=== PATIENT | female | born 1950 | race Caucasian/White ===

== ENCOUNTER → 2020-05-15 | Outpatient (CLI) | payer MEDICARE, OTHER, SELFPAY ==
--- NOTE | 2020-05-15 | IMM_PTH ---
PATIENT: RD LAINEZ LOC: [facility] U#:[id number] AGE/SX: 69/F ROOM: RE05/15/[address]: Dr. William Polanco MD : 1950 BED: DIS: 05/15/2020 SPEC #: [id number] RECD: 05/17/20 12:51 STATUS: MYLES REQ #: [id number] KAITY: 05/15/20 00:[address]: William Polanco DEPT: IMMUNOHISTOCHEMISTRY RECD BY: Sania Mohan Tissues: Gastric mucous membrane Procedures: MSH2 (add) MLH-1 (add) MSH6 (add) Anti-PMS2 (add) CK20 (add) MOLINA-2 (add) HER2 GEORGIE (add) KI-67 (add) P53 (add) CDX2 (add) CK7 (initial) PHYSICIAN & INSTITUTION [place] [id number] SPECIMEN INFORMATION: Tissue Source: GE junction Clinical Info: Abdominal pain, weight loss, nausea/vomiting Specimen Number: [id number] CPT code: 15846, 70571 x10 METHODOLOGY: Deparaffinized sections of prefer/formalin-fixed tissue or PAP/DQ stained slides are incubated with monoclonal/polyclonal antibodies/oligonucleotide probes. Localization is made via biotin free immunoperoxidase method. Appropriate controls are performed and reacted as expected. Results on target cell population are indicated in the following table: RESULTS: ANTIBODY / CLONE RESULT CK7 (OV-TL12/30) positive, focal CK20 (KS20.8) positive, focal CDX2 (EXU2969S) positive Ki-67 (30-9) positive, 86% P53 (DO-7) positive, 2% MOLINA-2 (SP21) positive MLH-1 (M1) positive MSH2 (25D12) positive MSH6 (44) positive PMS2 (IPY4975) positive Her-2neu (CB11) positive, 3+ These tests were developed and their performance characteristics determined by [facility]. They may not have been cleared or approved by the U.S. Food and Drug Administration. The FDA has determined that such clearance or approval is not necessary. The above immunohistochemical/dualISH markers are ordered and reviewed by the Pathologist. INTERPRETATION: Gastroesophageal junction, biopsy: Adenocarcinoma. Result of Microsatellite Instability Study: Negative (no loss of mismatch protein; no microsatellite instability detected). AM:jordan 05/18/20
--- NOTE | 2020-05-15 13:08 | EGD_PTH ---
PATIENT: [facility]INEZ [id number] AGE/SX: 69/F ROOM: RE05/15/[address]: Dr. William Polanco MD : 1950 BED: DIS: 05/15/2020 SPEC #: [id number] RECD: 05/15/20 15:02 STATUS: MYLES BEATRIZ #: [id number] KAITY: 05/15/20 13:[address]: William Polanco DEPT: SURGICAL PATHOLOGY RECD BY: Marcos Arreola ENTERED: 05/16/20 07:56 SP TYPE: EGD BIOPSY OT DR: MARCOS Tissues: Gastric mucous membrane Procedures: Surgery Specimen Level IV HEADER OPERATION: EGD PRE-OP DIAGNOSIS: Abdominal pain, weight loss, nausea and/or vomiting TISSUE SUBMITTED: GE junction MICROSCOPIC DIAGNOSIS Gastroesophageal junction, biopsy: Adenocarcinoma. See comment. AM:jordan 05/17/20 COMMENT Immunohistochemistry ([id number]) supports the above diagnosis. Mucin stain with matched control is focally positive in carcinomatous epithelium. Case has been reviewed in consultation with Dr. Pineda who concurs with the above diagnosis. IDC:SJ MICROSCOPIC DESCRIPTION Slides are reviewed. GROSS DESCRIPTION Received in fixative is one container labeled with the patient's name and designated GE junction. The specimen consists of multiple irregular fragments of light easley soft tissue that in aggregate measure 1 x 0.5 x 0.1 cm. The specimen is totally submitted in one cassette. / SURAJ:jordan 05/16/20 TC:0 CPT: 69167
== END | disposition home or self-care (01) ==
LOC: LABSPEC 15:36
PROVIDERS: Referring Provider Internal Medicine Gastroenterology; Visit Provider Internal Medicine Gastroenterology
DX: R10.9 Unspecified abdominal pain (principal)
CPT/HCPCS: 88305; 88341; 88342

== ENCOUNTER → 2020-06-08 08:04 | Outpatient (CLI) | payer MEDICARE, OTHER, SELFPAY ==
[2020-05-30 09:09] VITALS: BMI 15.6
--- NOTE | 2020-06-08 08:14 | CT_ITS ---
STUDY: CT CHEST WITH CONTRAST REASON FOR EXAM: Female, 69 years old. NEW ESOPHAGEAL CA DX, STENT PLACED 2 WKS AGO RADIATION DOSAGE (If Supplied By Facility): CTDIvol = ( 9.85 ) mGy, DLP = ( 341.41 ) mGycm TECHNIQUE: Transaxial imaging was performed following intravenous administration of IV ISOVUE 300 75ML. Multiplanar coronal and sagittal images were reformatted. Individualized dose optimization techniques were used for this CT. COMPARISON: None. FINDINGS: Hyperinflation. Diffuse emphysematous changes with decreased bronchovascular markings in both lungs. Bullous changes in both lungs worse in the upper lobes. There is no demonstrated pleural abnormality. Normal heart and pericardium. Normal mediastinum. Normal hilar regions. Normal enhanced pulmonary arteries. Normal aorta arch and descending thoracic aorta. There are mild degenerative changes of the thoracic spine. Soft tissue mass with circumferential wall thickening in the distal esophagus extending into the gastroesophageal junction. The mass measures 6 cm x 5 cm. An air-fluid level is seen within the stent. Diffuse fatty infiltration of the liver. CT/Chest WITH Contrast IMPRESSION: Soft tissue mass with circumferential thickening of the distal esophagus and gastroesophageal junction. A stent is seen within. Electronically Signed: Cleveland Haas, at 9:16 EDT , Service support ,
--- NOTE | 2020-06-08 08:14 | CT_ITS ---
STUDY: CT ABDOMEN WITH CONTRAST REASON FOR EXAM: Female, 69 years old. NEW ESOPHAGEAL CA DX, STENT PLACED 2 WKS AGO, HYSTERECTOMY, SINGLE OOPHERECTOMY RADIATION DOSAGE (If Supplied By Facility): CTDIvol = ( 9.85 ) mGy, DLP = ( 341.41 ) mGycm TECHNIQUE: Transaxial images were obtained post I.V. administration of IV [id number] 75ML, and without oral contrast. Sagittal and coronal images were reconstructed. Individualized dose optimization techniques were used for this CT. COMPARISON: None. FINDINGS: The lung bases are clear. The visualized portions of the heart are within normal limits. Normal liver. Normal gallbladder and extrahepatic biliary system. Normal spleen. Normal pancreas. Normal bilateral adrenal glands. Normal right kidney. Normal left kidney. There is diffuse circumferential wall thickening of the distal esophagus and gastroesophageal junction. A covered stent is seen at that site. An air-fluid level is seen within the stent. Normal small intestine. Normal colon. The appendix is visualized and appears normal. There is diffuse atherosclerotic calcification of the abdominal aorta, without a demonstrated aneurysm. Normal inferior vena cava. Normal retroperitoneum. Normal abdominal wall. Normal osseous structures. CT/Abdomen WITH IV Contrast IMPRESSION: Diffuse circumferential wall thickening and mass effect in the distal esophagus as well as gastroesophageal junction. A stent is seen at that site. There is evidence of an air-fluid level within the stent. Electronically Signed: Cleveland Haas, at 9:14 EDT , Service support ,
[2020-06-08 08:25] LABS: CREATININE FINGERSTICK < 0.6 mg/dL (0.55-1.02)
== END ==
PROVIDERS: Referring Provider Internal Medicine Medical Oncology; Visit Provider Internal Medicine Medical Oncology
DX: C15.5 Malignant neoplasm of lower third of esophagus (principal)
CPT/HCPCS: 71260; 74160; Q9967; A4216

== ENCOUNTER 2020-06-29 07:57 | Day surgery (SDC) | payer MEDICARE, OTHER, SELFPAY ==
[2020-06-21 13:58] VITALS: BMI 16.6
[2020-06-27 13:00] VITALS: BMI 16.5
[2020-06-29 08:17] VITALS: BP 127/53; PULSE 88; RESP 14; TEMP 37.5; O2SAT 98; BMI 16.5
[2020-06-29] MEDS: Lactated Ringers 1,000 ML 100 ML IV (08:49)
[2020-06-29 08:55] LABS: Bedside Glucose 100 mg/dL (70-110)
--- NOTE | 2020-06-29 08:55 | HP_ITS ---
Intake Vital Signs 06/21/20 BMI 16.6 06/21/20 Height 5 ft 2 in 06/21/20 Weight: 90 lb 2 oz 06/21/20 BMI 16.5 06/21/20 BP 129/57 H 06/21/20 Blood Pressure Location Rt brachial 06/21/20 Position Sitting 06/21/20 Respiration 18 06/21/20 Pulse 71 06/21/20 Pulse Source Monitor 06/21/20 Temp 98.0 F 06/21/20 Temp Source Temporal 06/21/20 Pulse Oximetry (%) 94 06/21/20 Oxygen Delivery Method room air Intake Visit Reasons: PORT PLACEMENT Chief Complaint: Port Placement [employer] Required: No Is patient in pain?: No Allergies atorvastatin Adverse Reaction (Verified 06/21/20 13:57) Rash Medications Levothyroxine Sodium [Synthroid] 88 mcg PO DAILY 05/25/20 [History Confirmed 06/21/20] Pantoprazole Sodium 40 mg PO DAILY 05/25/20 [History Confirmed 06/21/20] Acetaminophen/Codeine Liquid [Tylenol W/Cod Liq 300-30MG/12.5ML] 12.5 ml PO Q4H PRN PRN #56 udc 05/30/20 [Rx Confirmed 06/21/20] Hydrocodone/Acetaminophen [Hydrocodon-Acetaminophen 5-325] 1 ea PO PRN PRN 05/30/20 [History Confirmed 06/21/20] Megestrol Acetate [Megace Udc] 400 mg PO DAILY #300 ml 05/30/20 [Rx Confirmed 06/21/20] Nystatin 100,000 unit PO DAILY 05/30/20 [History Confirmed 06/21/20] Mirtazapine [Remeron] 15 mg PO QHS #30 tab 06/19/20 [Rx Confirmed 06/21/20] PFSH Medical History Esophageal cancer (Acute) Odynophagia (Acute) Diabetes mellitus (Acute) Hypothyroidism (Acute) Surgical History H/O: hysterectomy (Acute) Social History (Updated 06/21/20 @ 14:[address] Simón Mendez MD) Smoking Status: Former smoker HPI HPI HPI: RD FATOU, is a 69 F who presents to the office today for HPI HPI Surgical H&P: Yes HPI: RD LAIENZ, is a 69 F who presents to the office today for Evaluation for a right IJ PowerPort. Patient is actively getting treatment for esophageal cancer. She will be starting chemotherapy and she needs a port.She will be starting her chemotherapy in the upcoming week. ROS General General: Yes weight change and fatigue; no appetite, colon cancer, breast cancer or weakness HEENT HEENT: No difficulty swallowing, eye injury, eye surgery, swollen glands or hoarseness Endo Endocrine: Yes thyroid disease; no diabetes mellitus, thyroid cancer, Hair loss, heat intolerance or cold intolerance Skin Skin: No rash or changing moles Breast Breast: No left breast lump, right breast lump, nipple discharge, breast pain, abnormal mammogram, abnormal US or breast enlargement Musc Musculoskeletal: No back problems, arthritis, rheumatoid arthritis, gout or joint pain Cardio Cardiovascular: No murmur, pacemaker, heart disease, atrial fibrillation, high blood pressure, heart attack, heart stent, palpitations, shortness of breat with exertion or chest pain Psych Psychiatric: No depression, anxiety or hearing voices Resp Respiratory: No shortness of breath, No sleep apnea, No cough, No COPD, No asthma, No emphysema, No wheezing Gastro Gastrointestinal: Yes abdominal pain, No nausea or vomiting, No diarrhea, No constipation, No blood in stool, Yes acid reflux, No hemorrhoids, No ulcers, No gallbladder problem, No black,tarry stools Erich Hematologic: No blood thinners, No blood disorders, No bleeding, No anemia, No blood clots Neuro Neurologic: No system reviewed and no additional complaints, except as docu, No as per HPI, No abnormal walking, No abnormal hearing, No abnormal movements, No abnormal speech, No behavioral changes, No burning sensations, No confusion, No seizure-like activity, No unsteadiness, No dizziness, No localized weakness, No frequent falls, No headache(s), No lack of coordination, No loss of vision, No memory loss, No numbness, No other visual disturbances, No radiating pain, No restless legs, No sensory deficit, No fainting, No tingling, No tremor(s), No weakness, No other Exam Const General: no acute distress, well developed, well hydrated Orientation: oriented to person, oriented to place, oriented to time [facility] Head: normocephalic, atraumatic Ears: external ears normal Mouth: moist mucous membranes Eyes Sclera: sclerae normal Pupils: normal by confrontation Neck Neck: no lymphadenopathy noted Neck mass: No Thyroid: thyroid normal, symmetrical Chest Chest palpation & inspection: normal inspection of the chest Breast Palpation: No nipple discharge Resp Effort & Inspection: normal respiratory effort Auscultation: clear to auscultation bilaterally Percussion: percussion normal Cardio Rate: regular rate Rhythm: regular rhythm Heart Sounds: no murmurs GI Palpation: soft, no hepatosplenomegaly, no masses, nontender Rectal Exam: other Other: Rectal exam deferred. Extrem General: normal to inspection, no clubbing, cyanosis or edema Assessment & Plan Problems 1. Vascular catheter fitting or adjustment Z45.2 Plan I plan to perform a Right internal jugular port a cath placement. The planned surgical procedure was discussed extensively with the patient. The risks, benefits, anticipated outcomes and possible complication were mentioned. My staff has also explained the procedure in understandable terms and the patient was given the option to take printed material concerning the planned procedure. The patient had the opportunity to ask questions concerning the planned procedure. The patient freely consents to the planned procedure. Coding Level of Care Code Off vis,new,level 3 Diagnoses Vascular catheter fitting or adjustment Z45.2 COVID (Procedure Consent) Procedure Criteria Procedure Criteria: Yes Elective The surgeon/proceduralist and patient have discussed in detail the risk of exposure to and/or potential harm posed by the COVID-19 virus with having a surgery/procedure at this time versus the risk of? delaying the surgery/procedure. It is not possible to know either the risk of delaying the surgery or procedure or chance of getting an infection with perfect accuracy, but a joint decision was made between the patient and the surgeon/proceduralist ?to proceed at this time with the scheduled surgery/procedure as indicated on the consent form. I have re-examined the patient. There are no clinical changes since date of exam.
[2020-06-29] MEDS: Cefazolin 2 GM in 0.9% Normal Saline 100 ML IV (09:00)
--- NOTE | 2020-06-29 09:38 | RAD_ITS ---
STUDY: X-RAY CHEST REASON FOR EXAM: Female, 69 years old. ASPIRATION TECHNIQUE: Single AP portable view of the chest. COMPARISON: None. FINDINGS: EKG electrodes are seen. A covered stent graft is seen in the distal esophagus extending into the region of the gastroesophageal junction. Hyperinflation. The lungs are clear. There is no demonstrated pleural abnormality. Normal size heart. Normal mediastinum and cyn. Normal visualized pulmonary arteries. There is atherosclerotic calcification of the aortic arch with tortuosity. Normal visualized thoracic spine. Normal visualized ribs, clavicles, and shoulders. There is no demonstrated abnormality of the visualized soft tissue structures of the upper abdomen. RAD/Chest 1 View (Portable) IMPRESSION: Hyperinflation. The lungs are clear. Electronically Signed: Cleveland Haas, at 11:30 EDT , Service support ,
[2020-06-29 09:45] VITALS: BP 110/56; BP 127/53; PULSE 81; RESP 16; O2SAT 100
[2020-06-29 09:50] VITALS: BP 127/53; BP 98/58; PULSE 83; RESP 16; O2SAT 95
[2020-06-29 09:55] VITALS: BP 102/46; BP 127/53; PULSE 82; RESP 16; TEMP 36.9; O2SAT 100
--- NOTE | 2020-06-29 10:25 | SUR.PHASEII ---
PATIENT DENIES ANY FURTHER NAUSEA. DENIES PAIN. AWAITING CXR RESULTS PER DR VALDEZ WHO STATES HIS OFFICE WILL CONTACT PATIENT WITH RESCHEDULE DATE.
[2020-06-29 11:55] VITALS: BP 127/53
== END 2020-06-29 11:56 | disposition home or self-care (01) ==
LOC: SDC 07:58 → AC 07:59
PROVIDERS: Anesthesiology; Referring Provider Surgery; Visit Provider Surgery
PROC: (CPT 36561; principal; 2020-06-29 09:10)
DX: Z45.2 Encounter for adjustment and management of vascular access device (principal); Z53.8 Procedure and treatment not carried out for other reasons; C15.9 Malignant neoplasm of esophagus, unspecified; R13.10 Dysphagia, unspecified; Z11.59 Encounter for screening for other viral diseases; E11.9 Type 2 diabetes mellitus without complications; E03.9 Hypothyroidism, unspecified; Z79.890 Hormone replacement therapy; Z79.899 Other long term (current) drug therapy; Z87.891 Personal history of nicotine dependence
CPT/HCPCS: 00532; 36561; 77001; 71045; 82962; 87635; 94799; J7120; J2405; U0003

== ENCOUNTER 2020-07-04 06:36 | Day surgery (SDC) | payer MEDICARE, OTHER, SELFPAY ==
--- NOTE | 2020-06-21 02:02 | HP_ITS ---
Intake Vital Signs 06/21/20 BMI 16.6 06/21/20 Height 5 ft 2 in 06/21/20 Weight: 90 lb 2 oz 06/21/20 BMI 16.5 06/21/20 BP 129/57 H 06/21/20 Blood Pressure Location Rt brachial 06/21/20 Position Sitting 06/21/20 Respiration 18 06/21/20 Pulse 71 06/21/20 Pulse Source Monitor 06/21/20 Temp 98.0 F 06/21/20 Temp Source Temporal 06/21/20 Pulse Oximetry (%) 94 06/21/20 Oxygen Delivery Method room air Intake Visit Reasons: PORT PLACEMENT Chief Complaint: Port Placement Home Health Outreach Coordinator Required: No Is patient in pain?: No Allergies atorvastatin Adverse Reaction (Verified 06/21/20 13:57) Rash Medications Levothyroxine Sodium [Synthroid] 88 mcg PO DAILY 05/25/20 [History Confirmed 06/21/20] Pantoprazole Sodium 40 mg PO DAILY 05/25/20 [History Confirmed 06/21/20] Acetaminophen/Codeine Liquid [Tylenol W/Cod Liq 300-30MG/12.5ML] 12.5 ml PO Q4H PRN PRN #56 udc 05/30/20 [Rx Confirmed 06/21/20] Hydrocodone/Acetaminophen [Hydrocodon-Acetaminophen 5-325] 1 ea PO PRN PRN 05/30/20 [History Confirmed 06/21/20] Megestrol Acetate [Megace Udc] 400 mg PO DAILY #300 ml 05/30/20 [Rx Confirmed 06/21/20] Nystatin 100,000 unit PO DAILY 05/30/20 [History Confirmed 06/21/20] Mirtazapine [Remeron] 15 mg PO QHS #30 tab 06/19/20 [Rx Confirmed 06/21/20] PFSH Medical History Esophageal cancer (Acute) Odynophagia (Acute) Diabetes mellitus (Acute) Hypothyroidism (Acute) Surgical History H/O: hysterectomy (Acute) Social History (Updated 06/21/20 @ 14:[address] Simón Mendez MD) Smoking Status: Former smoker HPI HPI HPI: RD FATOU, is a 69 F who presents to the office today for HPI HPI Surgical H&P: Yes HPI: RD LAINEZ, is a 69 F who presents to the office today for Evaluation for a right IJ PowerPort. Patient is actively getting treatment for esophageal cancer. She will be starting chemotherapy and she needs a port.She will be starting her chemotherapy in the upcoming week. ROS General General: Yes weight change and fatigue; no appetite, colon cancer, breast cancer or weakness HEENT HEENT: No difficulty swallowing, eye injury, eye surgery, swollen glands or hoarseness Endo Endocrine: Yes thyroid disease; no diabetes mellitus, thyroid cancer, Hair loss, heat intolerance or cold intolerance Skin Skin: No rash or changing moles Breast Breast: No left breast lump, right breast lump, nipple discharge, breast pain, abnormal mammogram, abnormal US or breast enlargement Musc Musculoskeletal: No back problems, arthritis, rheumatoid arthritis, gout or joint pain Cardio Cardiovascular: No murmur, pacemaker, heart disease, atrial fibrillation, high blood pressure, heart attack, heart stent, palpitations, shortness of breat with exertion or chest pain Psych Psychiatric: No depression, anxiety or hearing voices Resp Respiratory: No shortness of breath, No sleep apnea, No cough, No COPD, No asthma, No emphysema, No wheezing Gastro Gastrointestinal: Yes abdominal pain, No nausea or vomiting, No diarrhea, No constipation, No blood in stool, Yes acid reflux, No hemorrhoids, No ulcers, No gallbladder problem, No black,tarry stools Erich Hematologic: No blood thinners, No blood disorders, No bleeding, No anemia, No blood clots Neuro Neurologic: No system reviewed and no additional complaints, except as docu, No as per HPI, No abnormal walking, No abnormal hearing, No abnormal movements, No abnormal speech, No behavioral changes, No burning sensations, No confusion, No seizure-like activity, No unsteadiness, No dizziness, No localized weakness, No frequent falls, No headache(s), No lack of coordination, No loss of vision, No memory loss, No numbness, No other visual disturbances, No radiating pain, No restless legs, No sensory deficit, No fainting, No tingling, No tremor(s), No weakness, No other Exam Const General: no acute distress, well developed, well hydrated Orientation: oriented to person, oriented to place, oriented to time [facility] Head: normocephalic, atraumatic Ears: external ears normal Mouth: moist mucous membranes Eyes Sclera: sclerae normal Pupils: normal by confrontation Neck Neck: no lymphadenopathy noted Neck mass: No Thyroid: thyroid normal, symmetrical Chest Chest palpation & inspection: normal inspection of the chest Breast Palpation: No nipple discharge Resp Effort & Inspection: normal respiratory effort Auscultation: clear to auscultation bilaterally Percussion: percussion normal Cardio Rate: regular rate Rhythm: regular rhythm Heart Sounds: no murmurs GI Palpation: soft, no hepatosplenomegaly, no masses, nontender Rectal Exam: other Other: Rectal exam deferred. Extrem General: normal to inspection, no clubbing, cyanosis or edema Assessment & Plan Problems 1. Vascular catheter fitting or adjustment Z45.2 Plan I plan to perform a Right internal jugular port a cath placement. The planned surgical procedure was discussed extensively with the patient. The risks, benefits, anticipated outcomes and possible complication were mentioned. My staff has also explained the procedure in understandable terms and the patient was given the option to take printed material concerning the planned procedure. The patient had the opportunity to ask questions concerning the planned procedure. The patient freely consents to the planned procedure. Coding Level of Care Code Off vis,new,level 3 Diagnoses Vascular catheter fitting or adjustment Z45.2 COVID (Procedure Consent) Procedure Criteria Procedure Criteria: Yes Elective The surgeon/proceduralist and patient have discussed in detail the risk of exposure to and/or potential harm posed by the COVID-19 virus with having a surgery/procedure at this time versus the risk of? delaying the surgery/procedure. It is not possible to know either the risk of delaying the surgery or procedure or chance of getting an infection with perfect accuracy, but a joint decision was made between the patient and the surgeon/proceduralist ?to proceed at this time with the scheduled surgery/procedure as indicated on the consent form. 06/21/20 1402 <Electronically signed by Simón tabares MD> Date _ Simón Mendez MD
[2020-07-03 09:28] VITALS: BMI 17.7
[2020-07-04] VITALS (9 sets, daily range): BP systolic 107–151; BP diastolic 58–81; PULSE 72–82; RESP 16; TEMP 36.3–38.3; O2SAT 92–98; BMI 17.3
[2020-07-04] MEDS: Lactated Ringers 1,000 ML 100 ML IV ×2 (07:18→11:19)
[2020-07-04 07:35] LABS: Bedside Glucose 100 mg/dL (70-110)
--- NOTE | 2020-07-04 08:34 | PCM.HP.BLA ---
History and Physical Date of Admission: 07/04/20 [facility] Medical Records Department [address] [place] [address] History and Physical 06/21/20 0202 MR#: [id number] Acct: [id number] Name: RD LAINEZ Rep #: [id number] : 1950 69 From: Simón Mendez MD PCP: Dr. 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 Is patient in pain?: No Allergies atorvastatin Adverse Reaction (Verified 06/21/20 13:57) Rash Medications Levothyroxine Sodium [Synthroid] 88 mcg PO DAILY 05/25/20 [History Confirmed 06/21/20] Pantoprazole Sodium 40 mg PO DAILY 05/25/20 [History Confirmed 06/21/20] Acetaminophen/Codeine Liquid [Tylenol W/Cod Liq 300-30MG/12.5ML] 12.5 ml PO Q4H PRN PRN #56 udc 05/30/20 [Rx Confirmed 06/21/20] Hydrocodone/Acetaminophen [Hydrocodon-Acetaminophen 5-325] 1 ea PO PRN PRN 05/30/20 [History Confirmed 06/21/20] Megestrol Acetate [Megace Udc] 400 mg PO DAILY #300 ml 05/30/20 [Rx Confirmed 06/21/20] Nystatin 100,000 unit PO DAILY 05/30/20 [History Confirmed 06/21/20] Mirtazapine [Remeron] 15 mg PO QHS #30 tab 06/19/20 [Rx Confirmed 06/21/20] PFSH Medical History Esophageal cancer (Acute) Odynophagia (Acute) Diabetes mellitus (Acute) Hypothyroidism (Acute) Surgical History H/O: hysterectomy (Acute) Social History (Updated 06/21/20 @ 14:[address] Simón Mendez MD) Smoking Status: Former smoker HPI HPI HPI: RD LAINEZ, is a 69 F who presents to the office today for HPI HPI Surgical H&P: Yes HPI: RD LAINEZ, is a 69 F who presents to the office today for Evaluation for a right IJ PowerPort. Patient is actively getting treatment for esophageal cancer. She will be starting chemotherapy and she needs a port.She will be starting her chemotherapy in the upcoming week. ROS General General: Yes weight change and fatigue; no appetite, colon cancer, breast cancer or weakness HEENT HEENT: No difficulty swallowing, eye injury, eye surgery, swollen glands or hoarseness Endo Endocrine: Yes thyroid disease; no diabetes mellitus, thyroid cancer, Hair loss, heat intolerance or cold intolerance Skin Skin: No rash or changing moles Breast Breast: No left breast lump, right breast lump, nipple discharge, breast pain, abnormal mammogram, abnormal US or breast enlargement Musc Musculoskeletal: No back problems, arthritis, rheumatoid arthritis, gout or joint pain Cardio Cardiovascular: No murmur, pacemaker, heart disease, atrial fibrillation, high blood pressure, heart attack, heart stent, palpitations, shortness of breat with exertion or chest pain Psych Psychiatric: No depression, anxiety or hearing voices Resp Respiratory: No shortness of breath, No sleep apnea, No cough, No COPD, No asthma, No emphysema, No wheezing Gastro Gastrointestinal: Yes abdominal pain, No nausea or vomiting, No diarrhea, No constipation, No blood in stool, Yes acid reflux, No hemorrhoids, No ulcers, No gallbladder problem, No black,tarry stools Erich Hematologic: No blood thinners, No blood disorders, No bleeding, No anemia, No blood clots Neuro Neurologic: No system reviewed and no additional complaints, except as docu, No as per HPI, No abnormal walking, No abnormal hearing, No abnormal movements, No abnormal speech, No behavioral changes, No burning sensations, No confusion, No seizure-like activity, No unsteadiness, No dizziness, No localized weakness, No frequent falls, No headache(s), No lack of coordination, No loss of vision, No memory loss, No numbness, No other visual disturbances, No radiating pain, No restless legs, No sensory deficit, No fainting, No tingling, No tremor(s), No weakness, No other Exam Const General: no acute distress, well developed, well hydrated Orientation: oriented to person, oriented to place, oriented to time [facility] Head: normocephalic, atraumatic Ears: external ears normal Mouth: moist mucous membranes Eyes Sclera: sclerae normal Pupils: normal by confrontation Neck Neck: no lymphadenopathy noted Neck mass: No Thyroid: thyroid normal, symmetrical Chest Chest palpation & inspection: normal inspection of the chest Breast Palpation: No nipple discharge Resp Effort & Inspection: normal respiratory effort Auscultation: clear to auscultation bilaterally Percussion: percussion normal Cardio Rate: regular rate Rhythm: regular rhythm Heart Sounds: no murmurs GI Palpation: soft, no hepatosplenomegaly, no masses, nontender Rectal Exam: other Other: Rectal exam deferred. Extrem General: normal to inspection, no clubbing, cyanosis or edema Assessment & Plan Problems 1. Vascular catheter fitting or adjustment Z45.2 Plan I plan to perform a Right internal jugular port a cath placement. The planned surgical procedure was discussed extensively with the patient. The risks, benefits, anticipated outcomes and possible complication were mentioned. My staff has also explained the procedure in understandable terms and the patient was given the option to take printed material concerning the planned procedure. The patient had the opportunity to ask questions concerning the planned procedure. The patient freely consents to the planned procedure. Coding Level of Care Code Off vis,new,level 3 Diagnoses Vascular catheter fitting or adjustment Z45.2 COVID (Procedure Consent) Procedure Criteria Procedure Criteria: Yes Elective The surgeon/proceduralist and patient have discussed in detail the risk of exposure to and/or potential harm posed by the COVID-19 virus with having a surgery/procedure at this time versus the risk of? delaying the surgery/procedure. It is not possible to know either the risk of delaying the surgery or procedure or chance of getting an infection with perfect accuracy, but a joint decision was made between the patient and the surgeon/proceduralist ?to proceed at this time with the scheduled surgery/procedure as indicated on the consent form. 06/21/20 1402 <Electronically signed by Simón Mendez MD> Date Simón Mendez MD Date: Time: Simón Mendez MD CC: ~ Date Dictated: 06/21/20 0202 Date Transcribed: 07/03/20 1513 Finance Director: AYSE Salinas I have re-examined the patient. There are no clinical changes since date of exam.
[2020-07-04 08:43] LABS: Probe Check PASS; Specimen Processing Control PASS
[2020-07-04] MEDS: Cefazolin 2 GM in 0.9% Normal Saline 100 ML IV (09:13)
[2020-07-04] MEDS: BUPIVACAINE LIPOSOME/PF 20 ML VIAL OPERA.SITE (09:47)
--- NOTE | 2020-07-04 10:11 | RAD_ITS ---
STUDY: X-RAY CHEST REASON FOR EXAM: Female, 69 years old. POST PORT PLACEMENT TECHNIQUE: Single AP portable view of the chest. COMPARISON: Comparison is made with prior study dated 06/29/2020. FINDINGS: A right-sided karo catheter has been placed. The tip is at the junction of the superior vena cava and right atrium. An esophageal covered stent is seen and this is unchanged. Increased markings in the retrocardiac region of the left lower lobe this may represent scarring and/or atelectasis. There is no demonstrated pleural abnormality. Normal size heart. Normal mediastinum and cyn. Normal visualized pulmonary arteries. There is atherosclerotic calcification of the aortic arch with tortuosity. Normal visualized thoracic spine. Normal visualized ribs, clavicles, and shoulders. There is no demonstrated abnormality of the visualized soft tissue structures of the upper abdomen. RAD/Chest 1 View (Portable) IMPRESSION: The tip of the right-sided karo catheter is at the junction of the superior vena cava and right atrium. Electronically Signed: Cleveland Haas, at 11:27 EDT , Service support ,
--- NOTE | 2020-07-04 10:11 | DCINST_ITS ---
Discharge Diet: No Restrictions - Pain medication may cause nausea. You should typically eat light foods as you take your pain medication. Discharge Activity: May Shower - with the bandage in place 1-2 days after surgery. DO NOT SHOWER WHEN YOUR PORT IS ACCESSED. Additional Activity Instructions:: May not drive, work with heavy equipment, or sign legal documents for [address] if you are no longer taking narcotic pain medications. You may drive when you are no longer taking pain medications. Additional Dressing/Incision Instructions:: Leave the bandage on for 2-3 days. When you remove the bandage, leave the steri-strips intact until they fall off. Allergies/Adverse Reactions: Allergies atorvastatin Adverse Reaction (Verified 07/04/20 06:49) Rash Medications to take at Discharge Levothyroxine Sodium [Synthroid] 88 mcg PO DAILY 05/25/20 Pantoprazole Sodium 40 mg PO DAILY 05/25/20 Lidocaine/Prilocaine [Lidocaine-Prilocaine Cream] 1 applicatio TP DAILY PRN PRN 30 Days #1 tube 06/22/20 Ondansetron [Ondansetron Odt] 8 mg PO Q8H PRN PRN 10 Days #30 tab.rapdis 06/22/20 Megestrol Acetate [Megace Udc] 400 mg PO DAILY 07/03/20 Mirtazapine [Remeron] 15 mg PO QHS 07/03/20 Oxycodone HCl/Acetaminophen [Percocet 5/325] 1 - 2 tab PO Q4H PRN PRN 6 Days #30 tab 07/04/20 The following prescriptions were given: Oxycodone HCl/Acetaminophen [Percocet 5/325] 1 - 2 tab PO Q4H PRN PRN 6 Days #30 tab PRN Reason: Pain Transmission Status: Received by [facility]/pharmacy #[id number] Primary Care Physician: Keely Parker DO [Primary Care Provider] - Test Results: Test results from this visit will be discussed in further detail at your follow- up appointment, if applicable. Please Follow Up With: Simón Mendez MD - [phone] When: Please plan to follow up in 7 days in the office.
[2020-07-04 10:21] LABS: Bedside Glucose 93 mg/dL (70-110)
--- NOTE | 2020-07-06 13:05 | PCM.OPRPT ---
Problem List (1) Vascular catheter fitting or adjustment Status: Acute Report of Operation Date of Procedure: 07/04/20 Pre-Operative Diagnosis: Vascular fitting and adjustment Post-Operative Diagnosis: Same Surgery/Procedure Performed:: Placement of right IJ PowerPort Type of Anesthesia:: General Anesthesiologist: Moses Kern Estimated Blood Loss (mL): <25 cc Description of Procedure: Patient was brought into the operating room. Placed in the supine position. Under excellent general endotracheal ovation the right neck and chest area were ultrasound identifying the internal jugular vein. The right chest and neck area were then sterilely prepped and draped in the usual fashion. Patient was placed in the slightly headdown position. Local was injected into the neck setting is technique was used to gain access to the internal jugular vein guidewire was placed over the needle the needle was removed fluoroscopy was used to confirm proper placement of the wire. I injected local in the chest I made an incision I created a pocket with use of electrocautery for the port. Went back up into the neck skin parviz was made dilator and sheath were placed over the guidewire removing the dilator and guidewire. Single-lumen catheter was placed through the sheath the sheath was removed. Fluoroscopy was used to confirm proper length of the catheter. I tunneled from the pocket on the chest up over the collarbone into the neck and brought the catheter down I cut at the length placed the locking hub on the catheter the port onto the catheter and then securing the 2 with a locking hub. The port was then flushed with 5 cc of Hepflush it worked well. I sutured it into the pocket created with 2 sutures of 2-0 Prolene. Skin incisions were brought together with deep dermal stitches of 3-0 Vicryl. Dermabond was applied sterile dressings were applied patient tolerated the procedure well. Portable chest x-ray was obtained. - Admit VTE Documentation VTE Present on Admission: No VTE Mechan Device Prophylaxis: SCD's VTE Pharm Prophylaxis ordered?: No Reason prophylaxis not ordered:: Treatment Not Indicated - Procedures Cardiovascular CF Procedures [id number]: [id number] Insert tunneled cv cath - [id number] , [id number]
== END 2020-07-04 12:07 | disposition home or self-care (01) ==
LOC: SDC 06:37 → AC 06:38
PROVIDERS: Referring Provider Surgery; Visit Provider Surgery
PROC: (CPT 36561; principal; 2020-07-04 08:30)
DX: Z45.2 Encounter for adjustment and management of vascular access device (principal); C15.9 Malignant neoplasm of esophagus, unspecified; E03.9 Hypothyroidism, unspecified; E11.9 Type 2 diabetes mellitus without complications; F41.9 Anxiety disorder, unspecified; F32.9 Major depressive disorder, single episode, unspecified; Z79.899 Other long term (current) drug therapy; Z87.891 Personal history of nicotine dependence; G25.81 Restless legs syndrome
CPT/HCPCS: 00532; 36561; 71045; 77001; 82962; 87635; C9803; J7120; C1788; J2405; U0003

== ENCOUNTER → 2020-08-07 10:02 | Outpatient (CLI) | payer MEDICARE, OTHER, SELFPAY ==
[2020-08-07 09:02] VITALS: BMI 17.4
--- NOTE | 2020-08-07 10:03 | RAD_ITS ---
STUDY: X-RAY - ABDOMEN/PELVIS REASON FOR EXAM: Female, 69 years old. Esophageal CA, stent placed in esophagus, currently receiving chemo -- complains of abdomen pain, started around same time as cancer diagnosis TECHNIQUE: Single AP view of the abdomen / pelvis. COMPARISON: None. FINDINGS: An esophageal covered stent is seen and this is unchanged. There is an unremarkable bowel gas pattern. There is no demonstrated free abdominal air. The visualized liver, spleen and kidneys are grossly normal in size and morphology. Normal soft tissue structures. Normal visualized osseous structures. RAD/Abdomen Single View IMPRESSION: Normal x-ray examination of the abdomen and pelvis. Electronically Signed: Juan C Brady, at 14:09 EDT Tel , Service support ,
--- NOTE | 2020-08-07 10:03 | RAD_ITS ---
STUDY: X-RAY CHEST REASON FOR EXAM: Female, 69 years old. Esophageal CA, stent placed in esophagus, currently receiving chemo -- complains of abdomen pain, started around same time as cancer diagnosis TECHNIQUE: Frontal and lateral views of the chest. COMPARISON: 07/04/2020 FINDINGS: A right-sided karo catheter has been placed. The tip is at the junction of the superior vena cava and right atrium. An esophageal covered stent is seen and this is unchanged. Gas fibroadenomas are seen in both lungs largest measures 4 mm is in the left lung base. There is small left pleural effusion with compressive atelectasis in the left lung base. Normal size heart. Normal mediastinum and cyn. Normal visualized pulmonary arteries. Normal visualized aortic arch and descending thoracic aorta. Normal visualized thoracic spine. Normal visualized ribs, clavicles, and shoulders. There is no demonstrated abnormality of the visualized soft tissue structures of the upper abdomen. RAD/Chest PA and Lateral IMPRESSION: New small left pleural effusion. Electronically Signed: Juan C Brady, at 14:04 EDT Tel , Service support ,
== END ==
PROVIDERS: Referring Provider Internal Medicine Medical Oncology; Visit Provider Internal Medicine Medical Oncology
DX: Z51.11 Encounter for antineoplastic chemotherapy (principal); C15.5 Malignant neoplasm of lower third of esophagus; D50.9 Iron deficiency anemia, unspecified; R10.9 Unspecified abdominal pain
CPT/HCPCS: 36591; 71046; 74018; 80053; 82378; 83615; 83735; 85025; 96367; 96368; 96375; 96411; 96413; 96415; 96416; J0640; J1756; A4216; J2469; J3490; J9190; J9263

== ENCOUNTER 2020-08-25 08:32 | Emergency (ER) | payer MEDICARE, OTHER, SELFPAY ==
[2020-08-21 08:59] VITALS: BMI 17.4
[2020-08-25 08:33] VITALS: BP 143/81; PULSE 83; RESP 18; TEMP 36.7; O2SAT 96; BMI 17.2
--- NOTE | 2020-08-25 08:44 | EKG12_ITS ---
Test Reason : SOB Blood Pressure : / mmHG Vent. Rate : 077 BPM Atrial Rate : 077 BPM P-R Int : 168 ms QRS Dur : 076 ms QT Int : 396 ms P-R-T Axes : 000 005 060 degrees QTc Int : 448 ms Normal sinus rhythm vs Ectopic Atrial Rhythm Nonspecific ST abnormality Abnormal ECG Confirmed by GURPREET MONROY, YADIRA ([id number]), editor managing newspaper JEFFERY BOSCH ([id number]) on 08/28/2020 11:28:24 AM Referred By: KRISS Confirmed By:YADIRA VÁZQUEZ MD
--- NOTE | 2020-08-25 08:52 | NURSING ---
PT DID NOT HAVE AN PREVIOUS EKG IN OUR SYSTEM
--- NOTE | 2020-08-25 09:03 | ED.VIS.GEN ---
History of Present Illness Chief Complaint: Shortness of Breath Informant: Patient Narrative: 69-year-old female with past medical history of esophageal cancer currently on chemotherapy with her last treatment being 4 days ago presents with concern for shortness of breath. States it is worsened over the past 48 hours. States that she has had a slight cough. Denies any fever or chills. Denies any nausea, vomiting, chest pain, diaphoresis. Past Medical History - Allergies and Home Meds Allergies/Adverse Reactions: Allergies atorvastatin Adverse Reaction (Verified 08/25/20 08:35) Rash Primary Care Physician: Keely Parker DO [Primary Care Provider] - Prior records reviewed: Yes Past Medical History: - - esophageal cancer Lives: Spouse/ Significant Other Smoking Status: Former smoker Alcohol: None Drugs: None Review of Systems General: Denies: Chills, Fever, Sweats Eyes: Denies: Visual changes - bilaterally, Diplopia ENT: Denies: Rhinorrhea, Sore throat Cardiovascular: Denies: Chest pain, Palpitations Respiratory: Reports: Dyspnea, Cough. Denies: Dyspnea on exertion Gastrointestinal: Denies: Abdominal pain, Nausea, Vomiting, Diarrhea, Melena, Hematochezia Genitourinary: Denies: Dysuria, Hematuria, Frequency Musculoskeletal: Denies: Back pain, Extremity Pain Skin: Denies: Rash, Wounds Neurological: Denies: Headache, Weakness, Numbness Physical Exam Vital Signs/Narrative: Vital Signs Temp Pulse Resp BP Pulse Ox 08/25/20 08:33 98.1 F 83 18 143/81 H 96 Inital Vital Signs reviewed: Yes General: Well nourished, Well developed, No Acute Distress Head: Normocephalic, Atraumatic Eyes: Perrl, EOMI ENT: Moist mucous membranes, No rhinorrhea Neck: Supple, Nontender Cardiovascular: Regular rate, Regular rhythm, No murmurs Respiratory: No distress, CTA bilaterally, Chest nontender Abdomen: Soft, Nontender, Nondistended, Normal bowel sounds Back: Nontender, Normal Inspection Extremities: Nontender, No edema Skin: Normal color, No rash Neurological: Alert, Oriented x3, Cranial nerves II-XII grossly intact, Normal Strength, Normal Sensation Psychological: Normal affect, Normal Mood Diagnostic/Tx/Re-eval Chest X-Ray - ED: 1 View, Normal Clinical Impression(s) from Imaging Studies Chest X-Ray 08/25/20 09:32 IMPRESSION: Mild degree of increased pleural parenchymal changes at the left lung base. Electronically Signed: Cleveland Haas, at 9:48 EDT , Service support , Laboratory Data 08/25/20 08/25/20 09:10 09:10 WBC 7.8 RBC 3.37 L Hgb 9.9 L Hct 32.5 L MCV 96.4 MCH 29.4 MCHC 30.5 L RDW Std Deviation 80.4 H RDW Coeff of Ruben 22.5 H Plt Count 165 MPV 9.4 Immature Gran % (Auto) 0.900 Neut % (Auto) 72.5 H Lymph % (Auto) 23.2 Hardeman % (Auto) 2.6 Eos % (Auto) 0.5 Baso % (Auto) 0.3 Absolute Neuts (auto) 5.7 Absolute Lymphs (auto) 1.81 Nucleated RBC % 0 Differential Comment SCANNED Rouleaux 1+ Sodium 131 L Potassium 3.6 Chloride 98 Carbon Dioxide 26.0 Anion Gap 7 BUN 16 Creatinine 0.43 L Estim Creat Clear Calc 34.86 Est GFR (MDRD) Af Amer 186 Est GFR (MDRD) Non-Af 154 BUN/Creatinine Ratio 37.2 H Glucose 93 Calcium 8.4 L Troponin I < 0.015 - Rhythm Strip Rhythm Strip: Sinus Rhythm Rate: 77 Ectopy: None - EKG Initial EKG Interpretation: Sinus Rhythm - Sinus rhythm at 77 bpm. IL interval of 168 ms. QTC of 448 ms. No evidence of ST elevation or depression at this time. - Medical Decision Making Appears well nontoxic. No respiratory distress. Lungs clear. Chest x-ray negative. Lab work within normal limits. Patient has no tachycardia or hypoxemia. Patient monitored in the emergency department for approximately 2 and half hours without any decompensation. Patient states that she is feeling improved. Patient will be tested for coronavirus. Spoke with the patient's oncologist who is agreeable with discharge. Asked to follow-up with primary care as well as oncology. Discharged home in stable condition. ED Disposition - Plan for ED Patient: Disposition: Home or Assisted Living Instructions: ED Upper Resp Infec No Abx Tx Referrals: Keely Parker DO [Primary Care Provider] - 2 Days
[2020-08-25 09:30] LABS: Absolute Lymphocyte Count 1.81 X10^3/uL (0.83-4.51); Absolute Neutrophil Count 5.7 X10^3/uL (2.0-7.7); Basophil# 0.02 X10^3/uL; Basophil% 0.3 % (0-1); Eosinophil# 0.04 X10^3/uL; Eosinophils% 0.5 % (0-5); Hematocrit 32.5 % (37-47); Hemoglobin 9.9 g/dL (12.0-15.0); Lymphocyte # 1.81 X10^3/ul (4.0); Lymphocyte % 23.2 % (19-41); Mean Corp Hgb Conc 30.5 g/dL (32-36); Mean Corpuscular Hgb 29.4 pg (27.0-32.0); Mean Corpuscular Volume 96.4 fL (81-99); Mean Platelet Vol. 9.4 fl (6.2-12.0); Monocyte% 2.6 % (0-10); NRBC Flagged by Analyzer 0 % (0-5); Neutrophil # 5.65 X10^3/uL (2.7-7.7); Neutrophil % 72.5 % (47-70); POSITIVE MORPHOLOGY YES; Platelet Count 165 K/mm3 (150-450); RBC Distribution Width CV 22.5 % (11.6-14.6); RBC Distribution Width SD 80.4 fl (35.1-43.9); Red Blood Count 3.37 M/mm3 (4.2-5.4); White Blood Count 7.8 K/mm3 (4.4-11.0)
--- NOTE | 2020-08-25 09:32 | RAD_ITS ---
STUDY: X-RAY CHEST REASON FOR EXAM: Female, 69 years old. ESOPHOGEAL CA, SOB AT REST AND INCREASED FATIGUE TECHNIQUE: Single AP portable view of the chest. COMPARISON: Comparison is made with prior study dated 08/07/2020. FINDINGS: A right-sided portacatheter is seen with the tip in the midportion of the superior vena cava. EKG electrodes are seen. Once again, a covered stent is seen in the distal esophagus Since prior study, there has been mild degree of increased infiltration in the left lower lobe with a small left pleural effusion. Hyperinflation. Normal size heart. Normal mediastinum and cyn. Normal visualized pulmonary arteries. Normal visualized aortic arch and descending thoracic aorta. Normal visualized thoracic spine. Normal visualized ribs, clavicles, and shoulders. There is no demonstrated abnormality of the visualized soft tissue structures of the upper abdomen. RAD/Chest 1 View (Portable) IMPRESSION: Mild degree of increased pleural parenchymal changes at the left lung base. Electronically Signed: Cleveland Haas, at 9:48 EDT , Service support ,
[2020-08-25 09:37] LABS: Differential Indicated SCAN CRITERIA MET
[2020-08-25 09:46] LABS: Anion Gap 7 (5-15); BUN 16 mg/dL (7-18); BUN/Creat Ratio 37.2 RATIO (10-20); Calcium,Total 8.4 mg/dL (8.5-10.1); Chloride 98 mmol/L (98-107); Creatinine, Serum 0.43 mg/dL (0.55-1.02); EST Glomerular Filtration Rate 154 mL/min (>60); Est Glom Filt Rate - Afr Amer 186 mL/min (>60); Estimated Creatinine Clearance 34.86 ml/min; Glucose 93 mg/dL (74-106); Potassium 3.6 mmol/L (3.5-5.1); Sodium Level 131 mmol/L (136-145)
[2020-08-25 10:01] LABS: Differential Comment SCANNED
[2020-08-25 10:02] LABS: Rouleaux 1+
[2020-08-25 10:18] VITALS: BP 122/69; PULSE 73; RESP 18; O2SAT 93
[2020-08-25 10:19] VITALS: BP 122/69; PULSE 73; RESP 18; TEMP 36.7; O2SAT 93
[2020-08-25 11:14] VITALS: BP 126/63; PULSE 72; RESP 18; O2SAT 95
== END 2020-08-25 11:21 | disposition home or self-care (01) ==
PROVIDERS: Emergency Provider Emergency Medicine
DX: R06.02 Shortness of breath (principal); R05 Cough; C15.9 Malignant neoplasm of esophagus, unspecified; Z79.899 Other long term (current) drug therapy; Z87.891 Personal history of nicotine dependence
CPT/HCPCS: 36591; 71045; 80048; 84484; 85025; 87635; 93005; 99283; A4216; U0003

== ENCOUNTER → 2020-12-08 07:53 | Outpatient (CLI) | payer MEDICARE, OTHER, SELFPAY ==
[2020-11-13 08:15] VITALS: BMI 15.5
--- NOTE | 2020-12-08 07:53 | RAD_ITS ---
STUDY: X-RAY - ESOPHAGUS (BARIUM SWALLOW) WITH FLUOROSCOPY REASON FOR EXAM: Female, 70 years old. DYSPHAGIA X MONTHS OFF/ON W/ BOTH SOLIDS AND LIQUIDS. WORSE LATELY. HX LOWER ESOPHAGEAL CA. TECHNIQUE: 22 view(s) of the esophagus were obtained following swallowing of barium. FLUOROSCOPY TIME (if supplied): (0:42) minutes/seconds COMPARISON: None. FINDINGS: A right-sided portacatheter is seen with the tip in the proximal superior vena cava. A 3.7 cm covered stent is seen in the distal esophagus crossing the gastroesophageal junction with the distal tip is in the fundal portion of the stomach. There is evidence of a circumferential tight stenosis in the distal esophagus just proximal to the placement of the stent. The patient ingested a 12 mm tablet of barium. The tablet is trapped in the distal esophagus just proximal to the stent. There is atherosclerotic calcification of the aortic arch with tortuosity of the descending aorta. Normal visualized pulmonary parenchyma. Normal visualized osseous structures of the thorax. RAD/Esophagus Dual Contrast IMPRESSION: Tight circumferential stenosis in the distal esophagus at the site of the proximal insertion of the stent with trapping of the 12 mm tablet of barium. Electronically Signed: Cleveland Haas MD at 9:10 EST , Service support ,
== END ==
PROVIDERS: Referring Provider Internal Medicine Medical Oncology; Visit Provider Internal Medicine Medical Oncology
DX: R13.10 Dysphagia, unspecified (principal)
CPT/HCPCS: 74221

== ENCOUNTER 2020-12-14 05:40 | Emergency (ER) | payer MEDICARE, OTHER, SELFPAY ==
[2020-12-12 13:52] VITALS: BMI 14.6
[2020-12-14] VITALS (9 sets, daily range): BP systolic 92–146; BP diastolic 51–66; PULSE 61–80; RESP 14–26; TEMP 36.6–37.1; O2SAT 95–100; BMI 15.7
--- NOTE | 2020-12-14 05:52 | CT_ITS ---
STUDY: CT ABDOMEN AND PELVIS WITHOUT CONTRAST REASON FOR EXAM: Female, 70 years old. TRAUMA, FALL, +LOC, BACK PAIN, HX ESOPHAGEAL CANCER W/ CHEMO, SURGERY RADIATION DOSAGE (If Supplied By Facility): CTDIvol = ( 6.06 ) mGy, DLP = ( 254.51 ) mGycm TECHNIQUE: Transaxial images were obtained from the dome of the diaphragm to the symphysis pubis without oral contrast, and without intravenous contrast. Sagittal and coronal images were reconstructed. There is very dense enteric contrast within the colon, which produces streak artifacts and somewhat limits visualization, particularly at the level of the pelvis. Sensitivity for traumatic injury to solid organs is limited by lack of IV contrast. Individualized dose optimization techniques were used for this CT. COMPARISON: CT PET scan 11/07/2020. CT scan abdomen 06/08/2020. FINDINGS: There are emphysematous changes in the visualized lung bases. There is opacification of the posterior left lung base. Discrimination between solid material and a potentially exudative pleural fluid is difficult in this noncontrast study. Increased activity was seen in this region on PET scan and some this may represent malignant pleural effusion and/or pulmonary or pleural mass The visualized portions of the heart are within normal limits. Normal liver. Normal gallbladder and extrahepatic biliary system. Normal spleen. Normal pancreas. Normal bilateral adrenal glands. Normal right kidney. Normal left kidney. There is a stent in the visualized distal thoracic esophagus and gastric fundus. There is mural thickening of the distal thoracic esophagus and EG junction. Normal small intestine. Normal colon. There is non-visualization of the appendix. There is no visible evidence for appendicitis. There is diffuse atherosclerotic calcification of the abdominal aorta, without a demonstrated aneurysm. Normal inferior vena cava. Normal retroperitoneum. Normal urinary bladder. The uterus is not visualized and may be surgically absent. There is poor visualization of this region due to artifacts from radiodense barium within the rectum. Normal abdominal wall. Normal osseous structures. CT/Abdomen/Pelvis without Cont IMPRESSION: Distal esophageal stent is in adequate position. Persistent mural thickening of the distal esophagus and EG junction, consistent with presence of neoplasm. Opacification of the posterior left lung base, corresponding with area of GLUCOSE avidity on the PET scan. Assessment of this area is limited by lack of IV contrast. This may represent pleural carcinomatosis, pleural/chest wall mass, or pulmonary mass. No visible evidence for acute pathology in the abdomen or pelvis. No evidence for significant traumatic internal injury. Electronically Signed: Chandana Farah MD at 7:04 EST , Service support ,
--- NOTE | 2020-12-14 05:52 | CT_ITS ---
STUDY: CT BRAIN WITHOUT CONTRAST REASON FOR EXAM: Female, 70 years old. TRAUMA, FALL, +LOC, BACK PAIN, HX ESOPHAGEAL CANCER W/ CHEMO, SURGERY RADIATION DOSAGE (If Supplied By Facility): CTDIvol = ( 44.99 ) mGy, DLP = ( 745.49 ) mGycm TECHNIQUE: Transaxial CT imaging of the brain was performed without administration of intravenous contrast material. Individualized dose optimization techniques were used for this CT. COMPARISON: No relevant priors. FINDINGS: Normal soft tissue structures. Normal calvarium. There is mild cerebral atrophy with widening of the extra-axial spaces and ventricular dilatation. There are areas of decreased attenuation within the white matter tracts of the supratentorial brain, consistent with microvascular disease changes. Normal basal ganglia and thalami. Normal brainstem. There is mild cerebellar atrophy. There is atherosclerotic calcification of the cavernous carotid arteries. There is no intracranial hemorrhage. There are no findings of an acute ischemic infarction. Normal visualized paranasal sinuses. CT/Brain/Head without Contrast IMPRESSION: Mild chronic involutional changes of the brain. No demonstrated acute intracranial process. Electronically Signed: Chandana Farah MD at 6:50 EST , Service support ,
--- NOTE | 2020-12-14 05:52 | EKG12_ITS ---
Test Reason : DYSRHYTHMIA Blood Pressure : / mmHG Vent. Rate : 068 BPM Atrial Rate : 068 BPM P-R Int : 140 ms QRS Dur : 084 ms QT Int : 502 ms P-R-T Axes : 074 056 079 degrees QTc Int : 533 ms Sinus rhythm with frequent Premature ventricular complexes Nonspecific ST abnormality Prolonged QT Abnormal ECG Confirmed by AUSTIN MONROY, MANN ([id number]), editor in chief newspaper JEFFERY BOSCH ([id number]) on 12/18/2020 12:31:06 P M Referred By: XIMENA Confirmed By:HAMMAD AVILA MD
--- NOTE | 2020-12-14 05:54 | ED.VIS.GEN ---
History of Present Illness Chief Complaint: Fall Informant: Patient Onset: Today Current Severity: Mild Maximum Severity: Moderate Worsened by: Movement Narrative: Patient presents after fall at home. Patient states she remembers getting up in the night to go to the bathroom. She was getting back in bed and tried to boost herself up. She states the next thing she knows she was on the floor. It is unknown whether the patient slid off the edge of the bed and fell to the floor or if she passed out and fell. She does believe she lost consciousness. She is complaining primarily of left low back pain and left hip pain with movement. She does believe she hit her head. Patient is currently undergoing evaluation and treatment for esophageal cancer. She states that she has had recent increase in tumor size over the superior aspect of the current stent and she has had difficulty taking p.o. She has been coming in for IV fluid hydration. - Past Medical History (1) Esophageal stenosis Status: Chronic (2) Esophageal cancer Status: Chronic (3) Hypothyroid Status: Chronic Past Medical History - Allergies and Home Meds Allergies/Adverse Reactions: Allergies atorvastatin Adverse Reaction (Verified 12/14/20 05:52) Rash Primary Care Physician: Keely Parker DO [Primary Care Provider] - Prior records reviewed: Yes Lives: Spouse/ Significant Other Smoking Status: Former smoker Review of Systems General: Denies: Chills, Fever Eyes: Denies: Visual changes - bilaterally ENT: Denies: Bilateral ear pain Cardiovascular: Denies: Chest pain Respiratory: Denies: Dyspnea, Cough Gastrointestinal: Reports: Nausea, Vomiting. Denies: Abdominal pain Musculoskeletal: Reports: Back pain, Extremity Pain Neurological: Denies: Headache Hematologic: Denies: Easy bruising, Easy bleeding Allergy: Denies: Uticaria Physical Exam Vital Signs/Narrative: Vital Signs Temp Pulse Resp BP Pulse Ox 12/14/20 05:42 98 F 80 16 92/53 L 95 Inital Vital Signs reviewed: Yes General: Well nourished, Well developed Head: Normocephalic ENT: Moist mucous membranes Neck: Supple Cardiovascular: Regular rate, Regular rhythm Respiratory: No distress, CTA bilaterally Abdomen: Soft, Nontender Extremities: - - Tenderness of the lateral left hip. Increased pain with flexion of hip. Equal leg lengths. Skin: Normal color Neurological: Alert, Oriented x3, - - No focal neurologic deficits. Psychological: Normal affect Diagnostic/Tx/Re-eval Impressions Abdomen/Pelvis CT 12/14/20 05:52 IMPRESSION: Distal esophageal stent is in adequate position. Persistent mural thickening of the distal esophagus and EG junction, consistent with presence of neoplasm. Opacification of the posterior left lung base, corresponding with area of GLUCOSE avidity on the PET scan. Assessment of this area is limited by lack of IV contrast. This may represent pleural carcinomatosis, pleural/chest wall mass, or pulmonary mass. No visible evidence for acute pathology in the abdomen or pelvis. No evidence for significant traumatic internal injury. Electronically Signed: Chandana Farah MD at 7:04 EST , Service support , Brain CT 12/14/20 05:52 IMPRESSION: Mild chronic involutional changes of the brain. No demonstrated acute intracranial process. Electronically Signed: Chandana Farah MD at 6:50 EST , Service support , 12/14/20 05:52 Abdomen/Pelvis without Cont [CT] Stat Brain/Head without Contrast [CT] Stat Laboratory Results 12/14/20 12/14/20 06:05 06:05 WBC 11.2 H RBC 2.08 L Hgb 7.0 L Hct 21.4 L MCV 102.9 H MCH 33.7 H MCHC 32.7 RDW Std Deviation 52.5 H RDW Coeff of Ruben 13.9 Plt Count 193 MPV 9.1 Immature Gran % (Auto) 0.900 Neut % (Auto) 75.1 H Lymph % (Auto) 18.0 L [place] % (Auto) 5.3 Eos % (Auto) 0.4 Baso % (Auto) 0.3 Absolute Neuts (auto) 8.4 H Absolute Lymphs (auto) 2.01 Nucleated RBC % 0 Sodium 138 Potassium 2.5 L* Chloride 102 Carbon Dioxide 28.0 Anion Gap 8 BUN 14 Creatinine 0.41 L Estim Creat Clear Calc 31.39 Est GFR (MDRD) Af Amer 196 Est GFR (MDRD) Non-Af 162 BUN/Creatinine Ratio 34.1 H Glucose 111 H Calcium 8.1 L - EKG Initial EKG Interpretation: Sinus Rhythm - Sinus at 68 with occasional PVCs. No acute ischemia. - Medical Decision Making Patient is given a 500 cc IV fluid bolus for blood pressure 92/53. Blood pressure does improve with this. Blood work is reviewed and it is noted that her hemoglobin has dropped 2.8 g in the last 3 days. When I went back to ask her and about any obvious sources of blood loss she now tells me that she had bloody emesis this morning x3. She states this occurred after her fall. With the patient recently finding out that her tumor has significantly grown and now having significant hemoglobin drop, transient hypotension, and a fall and concerned about bleeding from the tumor. Patient states that she was supposed to see a surgeon at [facility] after her radiation and did request their facility for transfer as I do not feel this is something that our surgeons here will be comfortable handling. ED Disposition - Plan for ED Patient: Referrals: Keely Parker DO [Primary Care Provider] -
[2020-12-14 06:12] LABS: Absolute Lymphocyte Count 2.01 X10^3/uL (0.83-4.51); Absolute Neutrophil Count 8.4 X10^3/uL (2.0-7.7); Basophil# 0.03 X10^3/uL; Basophil% 0.3 % (0-1); Eosinophil# 0.04 X10^3/uL; Eosinophils% 0.4 % (0-5); Hematocrit 21.4 % (37-47); Lymphocyte # 2.01 X10^3/ul (4.0); Mean Corp Hgb Conc 32.7 g/dL (32-36); Mean Corpuscular Hgb 33.7 pg (27.0-32.0); Mean Corpuscular Volume 102.9 fL (81-99); Mean Platelet Vol. 9.1 fl (6.2-12.0); Monocyte# 0.59 X10^3/uL; Monocyte% 5.3 % (0-10); NRBC Flagged by Analyzer 0 % (0-5); Neutrophil # 8.41 X10^3/uL (2.7-7.7); Neutrophil % 75.1 % (47-70); Platelet Count 193 K/mm3 (150-450); RBC Distribution Width CV 13.9 % (11.6-14.6); RBC Distribution Width SD 52.5 fl (35.1-43.9); Red Blood Count 2.08 M/mm3 (4.2-5.4); White Blood Count 11.2 K/mm3 (4.4-11.0)
[2020-12-14 06:47] LABS: Anion Gap 8 (5-15); BUN 14 mg/dL (7-18); BUN/Creat Ratio 34.1 RATIO (10-20); Calcium,Total 8.1 mg/dL (8.5-10.1); Chloride 102 mmol/L (98-107); Creatinine, Serum 0.41 mg/dL (0.55-1.02); EST Glomerular Filtration Rate 162 mL/min (>60); Est Glom Filt Rate - Afr Amer 196 mL/min (>60); Estimated Creatinine Clearance 31.39 ml/min; Glucose 111 mg/dL (74-106); Potassium 2.5 mmol/L (3.5-5.1); Sodium Level 138 mmol/L (136-145)
--- NOTE | 2020-12-14 06:49 | ED.RN ---
POTASSIUM OF 2.5 REPORTED TO .
[2020-12-14] MEDS: Potassium Chloride 10mEq/100mL 10 MEQ/100 ML IV.SOLN. 100 MEQ IV BOLUS ×4 (07:38→11:29)
== END 2020-12-14 18:31 | disposition short-term general hospital (02) ==
PROVIDERS: Emergency Provider Emergency Medicine
DX: S06.9X9A Unspecified intracranial injury with loss of consciousness of unspecified duration, initial encounter (principal); S30.0XXA Contusion of lower back and pelvis, initial encounter; M25.552 Pain in left hip; K92.0 Hematemesis; I95.9 Hypotension, unspecified; D64.9 Anemia, unspecified; C15.9 Malignant neoplasm of esophagus, unspecified; E03.9 Hypothyroidism, unspecified; W19.XXXA Unspecified fall, initial encounter; Y93.9 Activity, unspecified; Y92.003 Bedroom of unspecified non-institutional (private) residence as the place of occurrence of the external cause; Y99.9 Unspecified external cause status; Z87.891 Personal history of nicotine dependence
CPT/HCPCS: 36430; 36591; 70450; 74176; 80048; 85025; 86850; 86900; 86901; 86920; 86922; 87426; 93005; 96361; 96365; 96366; 99285; G0008; J7030; P9040; A4216